=== PATIENT | male | born 1950 | race Caucasian/White ===

== ENCOUNTER 2021-08-16 00:37 | Emergency (ER) | payer MEDICARE, OTHER ==
[~2021-08-16] VITALS: Ht 167.6 cm; Wt 86.2 kg
[2021-08-16] MEDS ORDERED: HYDROCODONE/APAP 10/325MG TABLET PO ONE (01:30)
[2021-08-16] MEDS ORDERED: LORAZEPAM 1 MG TABLET PO ONE (01:30)
--- NOTE | 2021-08-16 01:30 | NUR ---
BIBRA39. HAVENT HAD METHADONE X 2 DAYS, HAVING WITHDRWAL AND SHAKE RAN OUT OF MEDS. PATIENT IS A/O , NO SOB NOTED, RR EVEN AND UNLABORED. PATIENT CONNECETED TO MONITORS.
[2021-08-16] MEDS ORDERED: LORAZEPAM 1 MG TABLET ONE (01:53)
[2021-08-16] MEDS ORDERED: HYDROCODONE/APAP 10/325MG TABLET ONE (01:53)
--- NOTE | 2021-08-16 07:27 | NUR ---
PER PATIENT ROOM MATE NUMBER ZACHARY LEFT MESSAGE X 2 NO ANSWER. CALLED [phone] UNABLE TO CONTACT
[2021-08-16 09:36] VITALS: BP 112/77
--- NOTE | 2021-08-16 09:37 | NUR ---
Patient discharged to home in stable condition. Written and verbal after care instructions given. Patient verbalizes understanding of instruction. Picked up by maribel going back to [facility].
== END 2021-08-16 09:37 | disposition home or self-care (01) ==
LOC: ER 00:43
DX: F11.13 Opioid abuse with withdrawal (principal); Z76.0 Encounter for issue of repeat prescription; E11.9 Type 2 diabetes mellitus without complications; J44.9 Chronic obstructive pulmonary disease, unspecified; G89.29 Other chronic pain
CPT/HCPCS: 82962-TC

== ENCOUNTER 2021-11-05 10:07 | Inpatient (IN) | payer MEDICARE, OTHER ==
[~2021-11-05] VITALS: Ht 182.9 cm; Wt 86.0 kg
--- NOTE | 2021-11-05 10:25 | NUR ---
PT BIBRA[address] FROM A [address] HOUSE C/O GENERALIZED WEAKNESS, FEVER X 1 WEEK NOW, TODAY PT WAS UNABLE TO GET UP. 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 DENIES ANY CHEST PAIN, AFEBRILE. GOWNED AND PLACED ON MONITOR. AWAITING MD SYKES.
--- NOTE | 2021-11-05 10:30 | NUR ---
DR HINOJOSA AT BEDSIDE FOR EVAL.
[2021-11-05] MEDS ORDERED: DILTIAZEM HCL 25 MG IV IV ONE (11:00)
--- NOTE | 2021-11-05 11:05 | NUR ---
IV LINE STARTED BLOOD DRAWN AND SENT TO LAB.
--- NOTE | 2021-11-05 11:15 | NUR ---
CRUSHER AND BINDER OPERATOR AT PT'S BEDSIDE
[2021-11-05 11:21] LABS: HEMATOCRIT 41 % (39-51); LYMPHOCYTES # (AUTO) 0.4 K/uL (0.8-4.8); LYMPHOCYTES % (AUTO) 4.5 % (20.0-44.0); MEAN CORPUSCULAR HGB CONC 34 g/dl (31.0-36.0); MEAN CORPUSCULAR VOLUME 101 fL (80-96); MONOCYTES # (AUTO) 0.5 K/uL (0.1-1.30); MONOCYTES % (AUTO) 5.2 % (2.0-12.0); NEUTROPHILS # (AUTO) 8.5 K/uL (1.8-8.9); NEUTROPHILS % (AUTO) 90.3 % (43.0-81.0); PLATELET COUNT (AUTO) 68 K/uL (150-450); RED BLOOD CELL COUNT(AUTO) 4.09 MIL/uL (4.5-6.0); WHITE BLOOD COUNT (AUTO) 9.5 K/uL (4.3-11.0)
--- NOTE | 2021-11-05 11:30 | NUR ---
MOVE SHEET SUBMITTED
[2021-11-05] MEDS ORDERED: DILTIAZEM HCL 25 MG IV ONE ×2 (11:38→12:11)
[2021-11-05 11:47] LABS: SERUM AMMONIA 4 umol/L (11-32)
[2021-11-05 11:52] LABS: ALANINE AMINOTRANSFERASE 56 U/L (12-78); ALBUMIN 2.3 g/dL (3.4-5.0); ALKALINE PHOSPHATASE 99 U/L (46-116); ASPARTATE AMINOTRANSFERASE 98 U/L (15-37); BILIRUBIN,DIRECT 0.9 mg/dL (0.0-0.2); BILIRUBIN,TOTAL 1.8 mg/dL (0.2-1.0); CALCIUM, SERUM 8.2 mg/dL (8.5-10.1); CARBON DIOXIDE 26 mmol/L (21-32); CHLORIDE 84 mmol/L (98-107); CREATININE 0.7 mg/dL (0.6-1.3); GLUCOSE 254 mg/dL (74-106); POTASSIUM 3.8 mmol/L (3.5-5.1); SODIUM SERUM 125 mmol/L (136-145); TOTAL PROTEIN, SERUM 6.4 g/dL (6.4-8.2); UREA NITROGEN, BLOOD 14 mg/dL (7-18)
[2021-11-05] MEDS ORDERED: METH10TA2 PO (11:55)
--- NOTE | 2021-11-05 11:56 | NUR ---
CALLED FOR ICU BED.
[2021-11-05] MEDS ORDERED: DILTIAZEM HCL 25 MG IV IVP ONE (12:00)
[2021-11-05] MEDS ORDERED: DILTIAZEM HCL IV 125 MG in IV D5W 100 ML IV ONE (12:00)
--- NOTE | 2021-11-05 12:09 | NUR ---
LAB CALLED LACTIC ACID 2.2 MD AWARE.
[2021-11-05 12:22] LABS: BAND % (MANUAL) 10 % (0.0-5.0); LYMPHOCYTES % (MANUAL) 8 % (16-48); MONOCYTES % (MANUAL) 1 % (0-11.0); NEUTROPHILS % (MANUAL) 81 (42-76)
--- NOTE | 2021-11-05 12:28 | NUR ---
PT RETURNED FROM [facility] VIA [facility]
[2021-11-05] MEDS ORDERED: IV NS 0.9% 1,000 ML BAG IV ONE (12:30)
[2021-11-05] MEDS ORDERED: PIPERACILLIN /TAZOBACTAM 3.375 G in IV D5W 50 ML IV ONE (13:00)
--- NOTE | 2021-11-05 14:09 | NUR ---
RAJIV MIDLINE #18G S/L INSERTED BY MIDLINE NURSE DNOG; PATENT AND INTACT. WILL RESUME IV MEDS ORDERED
[2021-11-05] MEDS ORDERED: PIPERACILLIN /TAZOBACTAM 3.375 G VIAL IV ONE (14:14)
[2021-11-05] MEDS ORDERED: DEXAMETHASONE SOD PHOSPHATE 6 MG in IV D5W 50 ML IV SCH (14:30)
[2021-11-05] MEDS ORDERED: APIXABAN 5 MG TABLET PO SCH (14:30)
[2021-11-05] MEDS ORDERED: MORPHINE SULFATE INJ 2 MG/ML DISP.SYRIN IV PRN (14:30)
[2021-11-05] MEDS ORDERED: LABETALOL 20 MG/4 ML VIAL IV PRN (14:30)
[2021-11-05] MEDS ORDERED: MAG HYDROX/AL HYDROX/SIMETH 30 ML UDC PO PRN (14:30)
[2021-11-05] MEDS ORDERED: MAGNESIUM HYDROXIDE 30 ML UDC PO PRN (14:30)
[2021-11-05] MEDS ORDERED: ONDANSETRON HCL/PF 4 MG/2 ML VIAL IVP PRN (14:30)
[2021-11-05] MEDS ORDERED: ACETAMINOPHEN 325 MG TABLET PO PRN (14:30)
--- NOTE | 2021-11-05 14:35 | NUR ---
PT SEEN BY DR. CROFT ORDERS FOR AMIO DRIP IF PT IS STILL TACHY > 140'S IN 4 HOURS. CARDIZEM DRIP INFUSING ORDERED.
--- NOTE | 2021-11-05 14:38 | NUR ---
CARDIZEM 15MG/HR IINFUSING. HR 127. PT IN NO DISTRESS AT THIS TIME . WILL CONTINUE TO MONITOR VS & REASSES.
[2021-11-05] MEDS ORDERED: APIXABAN 5 MG TABLET ONE (14:50)
--- NOTE | 2021-11-05 14:54 | NUR ---
U/S TECH AT BEDSIDE FOR ABDOMINAL ULTRASOUND.
[2021-11-05] MEDS ORDERED: DEXTROSE 50%-WATER 50 ML DISP.SYRIN IV PRN (15:00)
[2021-11-05] MEDS ORDERED: DEXAMETHASONE SOD PHOSPHATE 4 MG/ML VIAL IV SCH (15:00)
[2021-11-05] MEDS ORDERED: DEXAMETHASONE SOD PHOSPHATE 10 MG/ML VIAL ONE (15:12)
[2021-11-05] MEDS ORDERED: AMLODIPINE BESYLATE 5 MG TABLET ONE (15:12)
[2021-11-05] MEDS: AMLODIPINE BESYLATE 5 MG TABLET PO SCH (15:21)
--- NOTE | 2021-11-05 15:32 | NUR ---
URINE COLLECTED AND SENT TO LAB
[2021-11-05] MEDS ORDERED: IV NS 0.9% 1,000 ML IV ONE (16:00)
--- NOTE | 2021-11-05 16:03 | NUR ---
BLOOD COLLECTED AND SENT TO LAB
--- NOTE | 2021-11-05 16:48 | NUR ---
PT SEEN BY DR. GALE
[2021-11-05 17:00] LABS: BILIRUBIN,URINE MODERATE (NEGATIVE); COLOR,URINE DARK YELLOW (YELLOW); LEUKOCYTE ESTERASE ,URINE NEGATIVE (NEGATIVE); NITRITE, URINE NEGATIVE (NEGATIVE); PH,URINE 6.5 (5.0-8.0); PROTEIN,URINE >=300 mg/dl (NEGATIVE); UGLUCOSE 100 MG/DL mg/dL (NEGATIVE); UROBILINOGEN,URINE >=8.0 EU/dL (0.2)
[2021-11-05] MEDS: BLOOD SUGAR DIAGNOSTIC 1 EACH STRIP VI SCH ×2 (17:15→22:20)
--- NOTE | 2021-11-05 17:15 | NUR ---
PT NPO PER ORDERS. POC BS 244; HELD INSULIN
--- NOTE | 2021-11-05 17:31 | NUR ---
CALLED [facility] TO VERIFY METHADONE ORDER AND NEED PT'S CLINIC WHERE METHADON WAS PRESCRIPED. PT NOT A GOOD HISTORIAN, AND NOT ABLE TO TO GET A HOLD OF EMERGENCY CONTACT. PT STATED HE LAST TOOK METHADONE YESTERDAY. PHARMACY AWARE.
[2021-11-05 17:39] LABS: BACTERIA,URINE Rare /HPF (None Seen); CREATININE, URINE 138.6 MG/DL (30.0-125.0); MUCUS,URINE Few /LPF (None Seen); RBC,URINE 51-80 /HPF (0-2); SQUAMOUS EPITHELIAL CELL,UR 0-2 /HPF (None Seen); WBC,URINE 0-2 /HPF (0-3)
[2021-11-05] MEDS ORDERED: INSULIN REGULAR, HUMAN 100 UNIT/ML 10 ML VIAL ONE (17:50)
[2021-11-05] MEDS ORDERED: METOPROLOL TARTRATE 50 MG TABLET ONE (17:50)
[2021-11-05] MEDS: METOPROLOL TARTRATE 50 MG TABLET PO SCH (18:17)
[2021-11-05] MEDS: *INSULIN REGULAR(HUMULIN R)HUM 100 UNIT/ML VIAL SQ PRN ×2 (18:19→22:21)
[2021-11-05] MEDS ORDERED: AMIODARONE 150 MG in IV D5W 100 ML IV ONE (18:30)
--- NOTE | 2021-11-05 19:12 | NUR ---
URINE COLLECTED AND SENT TO LAB
[2021-11-05] MEDS ORDERED: AMIODARONE 150 MG/3 ML VIAL IV ONE (19:13)
[2021-11-05] MEDS ORDERED: AMIODARONE 450 MG in IV D5W 241 ML IV PRN (19:30)
--- NOTE | 2021-11-05 19:41 | NUR ---
PT ON CARDIZEM 15MG/HR; HR IS AFIB 85-99. HELD AMIO 150MG IVP AND AMIO DRIP AT THIS TIME. GUERDA FLORES NOTIFIED
--- NOTE | 2021-11-05 19:44 | NUR ---
ROOM 119-1
--- NOTE | 2021-11-05 20:26 | NUR ---
REPORT GIVEN TO GEE FOR JOYCE
--- NOTE | 2021-11-05 20:40 | NUR ---
RN NOTES RECEIVED CARE OF PATIENT FROM ER, PATIENT A/O X3, ABLE TO VERBALIZE NEEDS. PATIENT ON TELE MONITOR SHOWING AFIB, RVR WITH HR IN THE 140S, PATIENT ON BROUGHT FROM ER ON CARDIZEM DRIP. PATIENT ON O2 THERAPY VIA NC 2L/MIN, O2 SAT 96% AT THIS TIME, NO SOB NOTED, NO SIGNS OF DISTRESS. IV ACCESS ON RAJIV MIDLINE, PATENT AND INFUSING CARDIZEM. ALL ISOLATION PRECAUTION IMPLEMENTED, ALL SAFETY PRECAUTIONS IN PLACE. WILL CONTINUE TO MONITOR PATIENT.
--- NOTE | 2021-11-05 20:49 | NUR ---
PT TRANSFERRED TO [facility] VIA ACLS PROTOCOL. ON CARDIZEM 15MG/HR IV ORDERED. VSS. BEDSIDE REPORT GIVEN AND MEDS GIVEN TO
--- NOTE | 2021-11-05 20:50 | NUR ---
ER NOTIFIED THAT AMIODARONE WAS HELD BY ER MD, CARDIZEM 15MG IV INFUSING AT THIS TIME. PATIENT IS CONTROLLED AFIB ON TELE MONITOR, NO SIGNS OF DISTRESS NOTED, HEART RATE OF 72, WILL CONTINUE TO MONITOR.
[2021-11-05 21:23] VITALS: BP 116/73
[2021-11-05] MEDS: APIXABAN 5 MG TABLET PO SCH (21:55)
[2021-11-06] VITALS: BP 105/72
[2021-11-06 00:31] LABS: ALCOHOL, BLOOD < 3 mg/dL (0-0)
[2021-11-06 04:00] VITALS: BP 116/77
[2021-11-06] MEDS: METOPROLOL TARTRATE 50 MG TABLET PO SCH ×4 (06:00→17:29)
--- NOTE | 2021-11-06 07:25 | NUR ---
RN CLOSING NOTES ENDORSED PT TO AM NURSE IN STABLE CONDITIONS A/O X3-4, ABLE TO VERBALIZE NEEDS. NO SIGNIFICANT NURSING FINDINGS UPON ALL NURSE ASSESSMENTS. VITAL SIGNS WITHIN NORMAL RANGES EXCEPT BP WHICH REMAINED BELOW 100 SYSTOLIC THROUGHOUT THE SHIFT. THERAPY TEACHER MADE AWARE. SCHEDULED BETA BLOCKERS HELD DUE TO LOW SYSTOLIC BP PER MD ORDERS. PATIENT ON TELE MONITOR SHOWING CONTROLLED AFIB. PATIENT ON O2 THERAPY VIA NC 2L/MIN, O2 SAT 95% AT THIS TIME, NO SOB NOTED, NO SIGNS OF DISTRESS. IV ACCESS ON RAJIV MIDLINE, PATENT. ALL ISOLATION PRECAUTION IMPLEMENTED, ALL SAFETY PRECAUTIONS IN PLACE. WILL ENDORSED TO AM NURSE FOR JOYCE.
--- NOTE | 2021-11-06 07:30 | NUR ---
RN NOTE PT FOUND RESTING IN BED. NO DISTRESS NOTED. AFIB NOTED ON TELE. PT A/OX3. PT ON 2LO2 VIA NC. TOLERATING WELL. PT IS NPO. PT HAS BRUISES ON R/L ARM AND WOUND ON L TOE. PT HAS RAJIV MIDLINE FLUSHING WELL. PT BED WHEELS LOCKED. CALL LIGHT WITHIN REACH AND SAFETY MEASURES NOTED. WILL CONTINUE TO MONITOR.
[2021-11-06 07:43] LABS: BASOPHILS % (AUTO) 0.5 % (0.0-2.0); EOSINOPHILS % (AUTO) 0.4 % (0.0-6.0); HEMATOCRIT 40 % (39-51); HEMOGLOBIN 13.2 g/dL (13.5-17.5); LYMPHOCYTES # (AUTO) 1.2 K/uL (0.8-4.8); LYMPHOCYTES % (AUTO) 15.8 % (20.0-44.0); MEAN CORPUSCULAR HGB CONC 33 g/dl (31.0-36.0); MEAN CORPUSCULAR VOLUME 102 fL (80-96); MONOCYTES # (AUTO) 0.7 K/uL (0.1-1.30); MONOCYTES % (AUTO) 9.8 % (2.0-12.0); NEUTROPHILS # (AUTO) 5.4 K/uL (1.8-8.9); NEUTROPHILS % (AUTO) 73.5 % (43.0-81.0); PLATELET COUNT (AUTO) 64 K/uL (150-450); RED BLOOD CELL COUNT(AUTO) 3.89 MIL/uL (4.5-6.0); WHITE BLOOD COUNT (AUTO) 7.3 K/uL (4.3-11.0)
--- NOTE | 2021-11-06 07:43 | NUR ---
WOUND CARE CONSULT: REVIEWED CHART, NURSING DOCUMENTATION AND PHOTOS WHICH INDICATE DISCOLORATION TO ARMS AND TOE WOUNDS, PRESENT ON ADMISSION. DPM CONSULT CALLED TO DR ANDERSON. RECOMMENDATIONS MADE FOR SKIN PROTECTION. DISCUSSED WITH NURSING STAFF. MD IN AGREEMENT WITH PLAN OF CARE.
[2021-11-06 08:00] VITALS: BP 106/74
[2021-11-06] MEDS ORDERED: Z GUARD REMEDY 4 OZ OINT TP PRN (08:00)
[2021-11-06 08:40] LABS: ALBUMIN 1.9 g/dL (3.4-5.0); BILIRUBIN,TOTAL 0.9 mg/dL (0.2-1.0); CALCIUM, SERUM 8.5 mg/dL (8.5-10.1); CREATININE 0.7 mg/dL (0.6-1.3); MAGNESIUM 2.4 mg/dL (1.8-2.4); PHOSPHORUS 2.4 mg/dL (2.5-4.9); POTASSIUM 3.4 mmol/L (3.5-5.1); TOTAL PROTEIN, SERUM 6.5 g/dL (6.4-8.2)
[2021-11-06] MEDS ORDERED: CEFEPIME 1 GM VIAL IM SCH (09:00)
[2021-11-06] MEDS: ALBUMIN 25% 25 GM in PREMIX 1 EA IV SCH ×2 (09:54→20:38)
[2021-11-06] MEDS: VANCOMYCIN HCL 1.25 GM in IV D5W 260 ML IV SCH ×2 (09:54→21:54)
[2021-11-06] MEDS: INSULIN REGULAR, HUMAN 100 UNIT/ML 3 ML VIAL SQ PRN ×2 (09:57→13:00)
[2021-11-06] MEDS: BLOOD SUGAR DIAGNOSTIC 1 EACH STRIP VI SCH ×4 (09:58→21:00)
[2021-11-06] MEDS: AMLODIPINE BESYLATE 5 MG TABLET PO SCH (10:01)
--- NOTE | 2021-11-06 10:18 | NUR ---
RN NOTE PATIENT SEEN BY RONNELL VEGA TO GIVE PLT OF 64 XARELTO ORDERED.
[2021-11-06] MEDS: APIXABAN 5 MG TABLET PO SCH ×2 (10:28→20:49)
[2021-11-06] MEDS: METHADONE HCL 10 MG TABLET PO SCH (11:01)
--- NOTE | 2021-11-06 11:30 | NUR ---
RN NOTE PATIENT SEEN BY DR. CROFT UPDATED REGARDING PATIENT CURRENT CONDITION.
[2021-11-06] MEDS: POTASSIUM CL. PREMIX PERIPHER. 50 ML IV SCH ×2 (11:49→12:57)
[2021-11-06 12:00] VITALS: BP 114/87
--- NOTE | 2021-11-06 12:00 | NUR ---
RN NOTE AMIODARONE DRIP ON HOLD BY PATIENT ON ELIQUIS AND HR IS 95 AT THIS TIME.
[2021-11-06 12:09] LABS: THYROID STIMULATING HORMONE 1.051 uIU/mL (0.358-3.74)
[2021-11-06] MEDS: CEFEPIME 2 GM in IV D5W 100 ML IV SCH ×2 (12:34→17:33)
[2021-11-06] MEDS ORDERED: Sodium Phosphate 15 MMOL in IV NS 0.9% 250 ML IV SCH (13:00)
[2021-11-06 16:00] VITALS: BP 116/71
[2021-11-06] MEDS: *INSULIN REGULAR(HUMULIN R)HUM 100 UNIT/ML VIAL SQ PRN ×2 (17:28→21:01)
--- NOTE | 2021-11-06 18:40 | NUR ---
RN NOTE PT RESTING IN BED. NO DISTRESS NOTED. AFIB NOTED ON TELE. PT A/OX3. PT ON 2LO2 VIA NC. TOLERATING WELL. PT IS PUREE W/NTL DIET. PT HAS BRUISES ON R/L ARM AND WOUND ON L TOE. WOUND TREATMENT DONE ORDERED. PT HAS RAJIV MIDLINE FLUSHING WELL. K REPLACED ORDERED. PT BED WHEELS LOCKED. CALL LIGHT WITHIN REACH AND SAFETY MEASURES NOTED. WILL ENDORSE TO ACQUISITION COST ESTIMATOR.
--- NOTE | 2021-11-06 19:39 | NUR ---
RN NOTE RECEIVED PATIENT IN BED, AWAKE, ALERT, AND VERBALLY RESPONSIVE. AOX2. ABLE TO MAKE NEEDS KNOWN. BREATHING EVEN AND UNLABORED. NO SOB NOTED AT THIS TIME. PATIENT PLACED BACK ON 2L/MIN NASAL CANNULA. PATIENT STATES NOT NEEDING OXYGEN BUT AGREED TO BE ON O2 AT THIS TIME. DENIES CHEST PAIN. ON TELE MONITORING. SINUS RHYTHM AT THIS TIME. SKIN WARM AND DRY. NO BLEEDING NOTED AT THIS TIME. NOTED WITH RIGHT UPPER ARM MIDLINE. PATENT. NO INFILTRATION. BED LOW, IN LOCKED POSITION. CALL LIGHT WITHIN REACH. Addendum: 11/06/21 at 2019 by YULIYA ELY RN CORRECTION - PATIENT A.FIB AT 94 BPM.
[2021-11-06 20:00] VITALS: BP 112/87
[2021-11-06 22:27] LABS: BAND % (MANUAL) 1 % (0.0-5.0); EOSINOPHILS % (MANUAL) 1 % (0-4); LYMPHOCYTES % (MANUAL) 11 % (16-48); MONOCYTES % (MANUAL) 8 % (0-11.0); NEUTROPHILS % (MANUAL) 79 (42-76)
[2021-11-07] VITALS: BP 120/90
[2021-11-07] MEDS: METOPROLOL TARTRATE 50 MG TABLET PO SCH ×4 (01:01→17:28)
[2021-11-07] MEDS: CEFEPIME 2 GM in IV D5W 100 ML IV SCH ×3 (01:02→17:28)
--- NOTE | 2021-11-07 02:31 | NUR ---
CHANGE OF CARE: RECEIVED REPORT. NO CHANGE IN CONDITION. PATIENT STABLE AT THIS TIME.
--- NOTE | 2021-11-07 02:32 | NUR ---
ENDORSEMENT TO RNCHRISTOPHER, ROMAIN JOYCE
[2021-11-07 04:00] VITALS: BP 142/87
[2021-11-07] MEDS: BLOOD SUGAR DIAGNOSTIC 1 EACH STRIP VI SCH ×4 (06:27→22:07)
[2021-11-07] MEDS: *INSULIN REGULAR(HUMULIN R)HUM 100 UNIT/ML VIAL SQ PRN ×4 (06:29→22:23)
--- NOTE | 2021-11-07 06:59 | NUR ---
RN CLOSING NOTE: PATIENT IN BED AWAKE. ALERT AND ORIENTED X2-3. INTERMITTENT FORGETFULNESS/CONFUSION NOTED THROUGHOUT THE EVENING. PATIENT NON-COMPLIANT WITH MAINTAINING NC @ 2LPM PLACEMENT, BUT IN NAD AND VSS AT THIS TIME. CONTINUES WITH CONTROLLED AFIB TO TELE READING. RAJIV MIDLINE, SL. FLUSHED AND PATENT. NO S/SX OF ERYTHEMA/INFILTRATION TO OR SURROUNDING IV CATH INSERTION SITE. DRESSING CDI. BED IN LOW, LOCKED POSITION. SIDE RAILS UP X2. PATIENT DEMONSTRATES ABILITY TO USE CALL LIGHT AND VERBALIZE NEEDS EFFECTIVELY. CALL LIGHT AND FREQUENTLY USED ITEMS WITHIN REACH.
--- NOTE | 2021-11-07 07:50 | NUR ---
RN OPENING NOTES PATIENT IS AWAKE IN BED RESTING, A/O X2-3. NO S/S OF PAIN NOTED AT THIS TIME. ON 2L OXYGEN VIA NC, NO DISTRESS OR SHORTNESS OF BREATH NOTED. IV ACCESS RAJIV MIDLINE, INTACT AND PATENT, FLUSHING WELL. PATIENT HAVE EXTERNAL EXPANDED DUTY DENTAL ASSISTANT WITH CURRENT READING OF A-FIB CONTROLLED, NO CARDIAC DISTRESS NOTED. FALL AND SAFETY MEASURES IN PLACE, BED ALARM ON, BED IN LOW AND LOCK POSITION, CALL LIGHT AND TABLE WITHIN EASY REACH, SIDE RAIL UP X2. WILL CONTINUE TO MONITOR.
[2021-11-07 07:57] LABS: BASOPHILS # (AUTO) 0.1 K/uL (0.0-0.2); BASOPHILS % (AUTO) 0.8 % (0.0-2.0); EOSINOPHILS % (AUTO) 0.5 % (0.0-6.0); HEMATOCRIT 37 % (39-51); HEMOGLOBIN 12.5 g/dL (13.5-17.5); LYMPHOCYTES % (AUTO) 20.5 % (20.0-44.0); MEAN CORPUSCULAR HGB CONC 34 g/dl (31.0-36.0); MEAN CORPUSCULAR VOLUME 101 fL (80-96); MONOCYTES # (AUTO) 0.7 K/uL (0.1-1.30); MONOCYTES % (AUTO) 6.9 % (2.0-12.0); NEUTROPHILS # (AUTO) 6.8 K/uL (1.8-8.9); NEUTROPHILS % (AUTO) 71.3 % (43.0-81.0); PLATELET COUNT (AUTO) 107 K/uL (150-450); WHITE BLOOD COUNT (AUTO) 9.6 K/uL (4.3-11.0)
[2021-11-07 08:00] VITALS: BP 145/116
[2021-11-07 08:20] LABS: CALCIUM, SERUM 8.6 mg/dL (8.5-10.1); CREATININE 0.7 mg/dL (0.6-1.3); POTASSIUM 3.6 mmol/L (3.5-5.1)
[2021-11-07 08:26] LABS: ALBUMIN 2.5 g/dL (3.4-5.0); BILIRUBIN,TOTAL 0.9 mg/dL (0.2-1.0); TOTAL PROTEIN, SERUM 6.7 g/dL (6.4-8.2)
[2021-11-07] MEDS: AMLODIPINE BESYLATE 5 MG TABLET PO SCH (09:14)
[2021-11-07] MEDS: METHADONE HCL 10 MG TABLET PO SCH (09:15)
[2021-11-07] MEDS: APIXABAN 5 MG TABLET PO SCH ×2 (09:17→22:07)
[2021-11-07] MEDS: DEXAMETHASONE SOD PHOSPHATE 10 MG/ML VIAL IV SCH (09:17)
[2021-11-07 10:31] LABS: CREATININE 0.8 mg/dL (0.6-1.3); POTASSIUM 3.8 mmol/L (3.5-5.1)
[2021-11-07 10:47] LABS: CALCIUM, SERUM 9.3 mg/dL (8.5-10.1)
[2021-11-07] MEDS: VANCOMYCIN HCL 1.25 GM in IV D5W 260 ML IV SCH ×2 (11:15→22:00)
[2021-11-07 12:00] VITALS: BP 180/76
[2021-11-07 16:00] VITALS: BP 146/76
--- NOTE | 2021-11-07 19:01 | NUR ---
RN NOTES PATIENT'S FRIEND NAMED AVELINA ALLEN CALLED AND ASKED TO PLEASE BE CALL WHEN PATIENT GET A DISCHARGE ORDER. HE WILL LIKE TO GENERAL EDUCATION INSTRUCTOR PATIENT WHEN HE GET DISCHARGE. HIS PHONE NUMBER IS [phone]. WILL ENDORSE TO NEXT SHIFT.
--- NOTE | 2021-11-07 19:04 | NUR ---
RN CLOSING NOTES PATIENT IS AWAKE IN BED RESTING, A/O X2-3. NO S/S OF PAIN NOTED AT THIS TIME. ON 2L OXYGEN VIA NC, NO DISTRESS OR SHORTNESS OF BREATH NOTED. IV ACCESS RAJIV MIDLINE, INTACT AND PATENT, FLUSHING WELL. PATIENT HAVE EXTERNAL MEAT SLICER WITH CURRENT READING OF A-FIB CONTROLLED, NO CARDIAC DISTRESS NOTED. SCHEDULE MEDS ADMINISTERED. FALL AND SAFETY MEASURES IN PLACE, BED ALARM ON, BED IN LOW AND LOCK POSITION, CALL LIGHT AND TABLE WITHIN EASY REACH, SIDE RAIL UP X2. WILL ENDORSE TO NEXT SHIFT.
--- NOTE | 2021-11-07 19:30 | NUR ---
RN OPENING NOTE PATIENT IN BED EYES CLOSED SLEEPING, EASILY AWAKENED. PATIENT IS A/O X 2 AT THIS TIME, ABLE TO MAKE NEEDS KNOWN. PATIENT IS ON 2LPM, TOLERATING WELL. PATIENT IS ON TELE MONITOR, TELE MONITOR READS AFIB CONTROLLED. PATIENT HAS A RAJIV MIDLINE, PATENT AND INTACT. NOT IN ANY PAIN AT THIS TIME. SAFETY MEASURES IN PLACE: BED LOCKED AND IN LOWEST POSITION, CALL LIGHT WITHIN REACH, SIDE RAILS UP. WILL MONITOR PATIENT CLOSELY. ISOLATION PRECAUTIONS IN PLACE.
[2021-11-07 20:00] VITALS: BP 147/95
--- NOTE | 2021-11-07 22:00 | NUR ---
BS 222 MG/DL, 4 UNITS COVERAGE GIVEN. WILL MONITOR PATIENT FOR HYPOGLYCEMIA
[2021-11-08] VITALS: BP 150/98
[2021-11-08] MEDS: METOPROLOL TARTRATE 50 MG TABLET PO SCH ×4 (01:04→17:03)
[2021-11-08] MEDS: CEFEPIME 2 GM in IV D5W 100 ML IV SCH ×2 (02:16→09:19)
[2021-11-08 04:00] VITALS: BP 113/87
[2021-11-08 06:36] LABS: BASOPHILS % (AUTO) 0.2 % (0.0-2.0); EOSINOPHILS % (AUTO) 0.2 % (0.0-6.0); HEMATOCRIT 38 % (39-51); HEMOGLOBIN 12.6 g/dL (13.5-17.5); LYMPHOCYTES # (AUTO) 1.7 K/uL (0.8-4.8); LYMPHOCYTES % (AUTO) 29.1 % (20.0-44.0); MEAN CORPUSCULAR HGB CONC 33 g/dl (31.0-36.0); MEAN CORPUSCULAR VOLUME 102 fL (80-96); MONOCYTES # (AUTO) 0.6 K/uL (0.1-1.30); MONOCYTES % (AUTO) 10.1 % (2.0-12.0); NEUTROPHILS # (AUTO) 3.6 K/uL (1.8-8.9); NEUTROPHILS % (AUTO) 60.4 % (43.0-81.0); PLATELET COUNT (AUTO) 109 K/uL (150-450); RED BLOOD CELL COUNT(AUTO) 3.75 MIL/uL (4.5-6.0)
--- NOTE | 2021-11-08 07:04 | NUR ---
RN CLOSING NOTE PATIENT IN BED AWAKE. PATIENT IS A/O X 2 AT THIS TIME, ABLE TO MAKE NEEDS KNOWN. PATIENT IS ON 2LPM, TOLERATING WELL. PATIENT IS ON TELE MONITOR, TELE MONITOR READS AFIB CONTROLLED 62 BPM. PATIENT HAS A RAJIV MIDLINE, PATENT AND INTACT. NOT IN ANY PAIN AT THIS TIME. SAFETY MEASURES IN PLACE: BED LOCKED AND IN LOWEST POSITION, CALL LIGHT WITHIN REACH, SIDE RAILS UP. ISOLATION PRECAUTIONS IN PLACE. ALL NEEDS MET AND ATTENDED, ALL ORDERS CARRIED OUT. WILL ENDORSE TO DAY SHIFT NURSE FOR JOYCE.
--- NOTE | 2021-11-08 07:29 | NUR ---
RN OPENING NOTES; PT IN BED SLEEPING. A/OX2. NO SOB NOTED, PT ON 02 VIA NC @ 2LPM SATTING AT 97%. PT ON RAJIV ML NOTED, FLUSHED, PATENT WITH NO SIGN OF INFILTRATION. ALL SAFETY MEASURES RENDERED, BED LOCKED IN LOWEST POS. SIDE RAILS X3 WITH CALL LIGHT WITHIN REACH. WILL CONTINUE TO MONITOR.
[2021-11-08 07:31] LABS: CALCIUM, SERUM 9.5 mg/dL (8.5-10.1); CREATININE 0.8 mg/dL (0.6-1.3); MAGNESIUM 2.4 mg/dL (1.8-2.4); PHOSPHORUS 3.1 mg/dL (2.5-4.9); POTASSIUM 2.9 mmol/L (3.5-5.1)
[2021-11-08] MEDS: BLOOD SUGAR DIAGNOSTIC 1 EACH STRIP VI SCH ×4 (07:42→21:47)
[2021-11-08] MEDS: *INSULIN REGULAR(HUMULIN R)HUM 100 UNIT/ML VIAL SQ PRN ×4 (07:51→21:50)
[2021-11-08 08:00] VITALS: BP 144/96
[2021-11-08] MEDS: VANCOMYCIN HCL 1.25 GM in IV D5W 260 ML IV SCH (08:00)
[2021-11-08] MEDS: METHADONE HCL 10 MG TABLET PO SCH (08:02)
[2021-11-08] MEDS: DEXAMETHASONE SOD PHOSPHATE 10 MG/ML VIAL IV SCH (08:02)
[2021-11-08] MEDS: APIXABAN 5 MG TABLET PO SCH ×2 (08:03→20:31)
[2021-11-08] MEDS: POTASSIUM CHLORIDE 20 MEQ TAB.PRT.SR PO SCH ×2 (10:01→16:34)
[2021-11-08 10:36] LABS: THYROID STIMULATING HORMONE 2.257 uIU/mL (0.358-3.74)
[2021-11-08] MEDS: CEFTRIAXONE 2 G in IV D5W 100 ML IV SCH (10:58)
[2021-11-08 12:00] VITALS: BP 132/93
[2021-11-08 16:00] VITALS: BP 138/73
--- NOTE | 2021-11-08 18:47 | NUR ---
RN CLOSING NOTES; PT IN BED IN SIDE LYING POS. A/OX2, PT ABLE TO MAKE NEEDS KNOWN. NO SOB OR DISTRESS NOTED. PT HAS NO C/O PAIN AT THIS TIME. ALL MEDICATIONS GIVEN AND TOLERATED WELL. PT KEPT CLEAN, DRY AND COMFORTABLE. ALL SAFETY MEASURES RENDERED, BED LOCKED IN LOWEST POS. SIDERAILSX3, WITH CALL LIGHT WITHIN REACH. NO SIGNIFICANT CHANGES IN PT HEALTH STATUS DURING SHIFT. WILL ENDORSE TO SOIL TECHNOLOGIST RN.
--- NOTE | 2021-11-08 19:45 | NUR ---
RN NOTE PT RECEIVED IN BED. PT IS ON 3L OF O2 VIA NC SHOWING NO S/S OF RESP DISTRESS. BREATHING EVEN AND UNLABORED. ON METER SETTER SHOWING CONTROLLED A-FIB. ON PUREED DIET. IV ACCESS NOTED ON RIGHT UPPER ARM MIDLINE. LINE FLUSHED, PATENT, AND INTACT WITH NO SIGNS OF INFILTRATION. ALL SAFETY MEASURES IMPLEMENTED. CALL LIGHT WITHIN REACH. BED ALARM ON. BED LOCKED AND IN LOWEST POSITION. SIDE RAILS UP. WILL CONTINUE TO MONITOR AND ASSESS FOR ANY CHANGES DURING SHIFT.
[2021-11-08 20:00] VITALS: BP 140/91
[2021-11-09] VITALS: BP 133/92
[2021-11-09] MEDS: METOPROLOL TARTRATE 50 MG TABLET PO SCH ×4 (01:01→17:52)
[2021-11-09 04:00] VITALS: BP 155/92
--- NOTE | 2021-11-09 06:48 | NUR ---
RN NOTE NO CHANGES IN PT CONDITION DURING SHIFT. PT IS ON 3L OF O2 VIA NC SHOWING NO S/S OF RESP DISTRESS. BREATHING EVEN AND UNLABORED. ON LEDGE MAN SHOWING CONTROLLED A-FIB. ON PUREED DIET. IV ACCESS NOTED ON RIGHT UPPER ARM MIDLINE. LINE FLUSHED, PATENT, AND INTACT WITH NO SIGNS OF INFILTRATION. ALL DUE MEDS GIVEN ORDERED. PT KEPT CLEAN AND COMFORTABLE. ALL SAFETY MEASURES IMPLEMENTED. CALL LIGHT WITHIN REACH. BED ALARM ON. BED LOCKED AND IN LOWEST POSITION. SIDE RAILS UP. WILL ENDORSE TO MORNING SHIFT RN FOR JOYCE.
[2021-11-09] MEDS: BLOOD SUGAR DIAGNOSTIC 1 EACH STRIP VI SCH ×4 (07:30→22:39)
[2021-11-09 08:00] VITALS: BP 149/99
[2021-11-09 08:32] LABS: BASOPHILS % (AUTO) 0.5 % (0.0-2.0); EOSINOPHILS % (AUTO) 0.6 % (0.0-6.0); HEMATOCRIT 38 % (39-51); HEMOGLOBIN 12.5 g/dL (13.5-17.5); LYMPHOCYTES # (AUTO) 2.4 K/uL (0.8-4.8); LYMPHOCYTES % (AUTO) 30.3 % (20.0-44.0); MEAN CORPUSCULAR HGB CONC 33 g/dl (31.0-36.0); MEAN CORPUSCULAR VOLUME 102 fL (80-96); MONOCYTES # (AUTO) 0.8 K/uL (0.1-1.30); MONOCYTES % (AUTO) 9.6 % (2.0-12.0); NEUTROPHILS # (AUTO) 4.6 K/uL (1.8-8.9); PLATELET COUNT (AUTO) 124 K/uL (150-450); RED BLOOD CELL COUNT(AUTO) 3.71 MIL/uL (4.5-6.0); WHITE BLOOD COUNT (AUTO) 7.9 K/uL (4.3-11.0)
[2021-11-09] MEDS: POTASSIUM CHLORIDE 20 MEQ TAB.PRT.SR PO SCH ×4 (09:01→17:51)
[2021-11-09] MEDS: DEXAMETHASONE SOD PHOSPHATE 10 MG/ML VIAL IV SCH (09:02)
[2021-11-09] MEDS: APIXABAN 5 MG TABLET PO SCH ×2 (09:03→22:00)
[2021-11-09] MEDS: METHADONE HCL 10 MG TABLET PO SCH (09:09)
[2021-11-09 09:37] LABS: CALCIUM, SERUM 7.4 mg/dL (8.5-10.1); CREATININE 0.7 mg/dL (0.6-1.3); MAGNESIUM 1.8 mg/dL (1.8-2.4); PHOSPHORUS 2.6 mg/dL (2.5-4.9); POTASSIUM 3.3 mmol/L (3.5-5.1)
[2021-11-09] MEDS: *INSULIN REGULAR(HUMULIN R)HUM 100 UNIT/ML VIAL SQ PRN ×2 (10:22→22:42)
[2021-11-09] MEDS: CEFTRIAXONE 2 G in IV D5W 100 ML IV SCH (10:40)
[2021-11-09 12:00] VITALS: BP 142/88
[2021-11-09] MEDS: INSULIN REGULAR, HUMAN 100 UNIT/ML 3 ML VIAL SQ PRN (12:41)
[2021-11-09 16:00] VITALS: BP 138/90
[2021-11-09] MEDS ORDERED: IV NS 0.9% 1,000 ML IV ONE (16:30)
--- NOTE | 2021-11-09 19:41 | NUR ---
RN OPENING NOTES; RECEIVED PT IN BED AWAKE, ALERT, ORIENTED X2 AND VERBALLY RESPONSIVE. NO SOB NOTED, PT ON 02 VIA NC @ 2LPM AND TOLERATED WELL. IV ACCESS ON RAJIV ML INTACT AND PATENT. NO SIGN OF INFILTRATION. NO C/O PAIN OR DISCOMFORT. NO ACUTE DISTRESS. ALL SAFETY MEASURES IN PLACE, BED LOCKED IN LOWEST POSITION. SIDE RAILS X3. PLACE CALL LIGHT WITHIN REACH. WILL CONTINUE TO MONITOR.
[2021-11-09 20:00] VITALS: BP 156/107
[2021-11-10] VITALS: BP 161/115
[2021-11-10] MEDS: METOPROLOL TARTRATE 50 MG TABLET PO SCH ×4 (01:11→17:54)
[2021-11-10 04:00] VITALS: BP 131/100
--- NOTE | 2021-11-10 06:50 | NUR ---
RN CLOSING NOTES; PT IN BED AWAKE, ALERT, ORIENTED X2 AND VERBALLY RESPONSIVE. NO SOB, BREATHING EVEN AND UNLABORED. ON 02 VIA NC @ 2LPM, O2 SAT 97% AND TOLERATED WELL. IV ACCESS ON RAJIV ML INTACT AND PATENT. NO SIGN OF INFILTRATION. NO C/O PAIN OR DISCOMFORT. NO ACUTE DISTRESS. ALL DUE MEDS GIVEN ORDERED AND PT TOLERATED WELL. NO S/S OF HYPER/HYPOGLYCEMIA. ALL SAFETY MEASURES IN PLACE, BED LOCKED IN LOWEST POSITION. SIDE RAILS X3. PLACE CALL LIGHT WITHIN REACH. WILL ENDORSE TO MORNING SHIFT NURSE.
[2021-11-10 08:00] VITALS: BP 131/100
[2021-11-10] MEDS: BLOOD SUGAR DIAGNOSTIC 1 EACH STRIP VI SCH ×4 (08:22→22:29)
[2021-11-10] MEDS: DEXAMETHASONE SOD PHOSPHATE 10 MG/ML VIAL IV SCH (09:15)
[2021-11-10] MEDS: METHADONE HCL 10 MG TABLET PO SCH (09:15)
[2021-11-10] MEDS: APIXABAN 5 MG TABLET PO SCH ×2 (09:18→20:56)
[2021-11-10] MEDS: POTASSIUM CHLORIDE 20 MEQ TAB.PRT.SR PO SCH (09:18)
[2021-11-10] MEDS: *INSULIN REGULAR(HUMULIN R)HUM 100 UNIT/ML VIAL SQ PRN ×3 (10:47→17:57)
[2021-11-10] MEDS: CEFTRIAXONE 2 G in IV D5W 100 ML IV SCH (11:52)
[2021-11-10 12:00] VITALS: BP 163/94
--- NOTE | 2021-11-10 14:31 | NUR ---
STRIP CATCHER OPENING NOTES; RECEIVED PT IN BED AWAKE, ALERT, ORIENTED X2 AND VERBALLY RESPONSIVE. NO SOB NOTED, PT ON 2 VIA NC @ 2LPM AND TOLERATED WELL. IV ACCESS ON RAJIV ML INTACT AND PATENT. NO SIGN OF INFILTRATION. NO C/O PAIN OR DISCOMFORT. NO ACUTE DISTRESS. ALL SAFETY MEASURES IN PLACE, BED LOCKED IN LOWEST POSITION. SIDE RAILS X3. PLACE CALL LIGHT WITHIN REACH. WILL CONTINUE TO MONITOR.
[2021-11-10 19:41] VITALS: BP 166/90
[2021-11-10 20:00] VITALS: BP 158/95
--- NOTE | 2021-11-10 20:00 | NUR ---
RN OPENING NOTE RECEIVED PATIENT IN BED. A/OX1, TO SELF. ON OXYGEN 2L/MIN VIA NASAL CANNULA. REMOVES O2 FEELS THERE IS NO NEED FOR IT. INFORMED HIM ON THE IMPORTANCE. NO C/O PAIN NOTED. IV ACCESS IN RAJIV MIDLINE PATENT AND SALINE LOCKED. TELE MONITOR READS CONTROLLED AFIB HR 80. BED REMAINS LOW AND LOCKED, HOB ELEVATED IN SEMI FOWLERS, SIDE RIALS UP X2, CALL LIGHT WITHIN REACH. ALARMS ON AND SAFETY PRECAUTIONS IN PLACE.
--- NOTE | 2021-11-10 21:15 | NUR ---
2115 CRITICAL BLOOD CULTURE RESULT POSITIVE FOR GRAM POSITIVE COCCI REPORTED TO DR. GALVAN WITH NO ORDER MADE.
[2021-11-11] VITALS: BP 141/96
[2021-11-11] MEDS: METOPROLOL TARTRATE 50 MG TABLET PO SCH ×4 (01:26→18:06)
[2021-11-11 04:00] VITALS: BP 154/93
--- NOTE | 2021-11-11 07:02 | NUR ---
RN CLOSING NOTE RESTING IN BED. A/OX1-2, ABLE TO ANSWER QUESTIONS. REMAINS ON OXYGEN 2L/MIN VIA NASAL CANNULA. NO RESP DISTRESS. NO PAIN. RAJIV MIDLINE MAINTAINED. TELE MONITOR IS CONTROLLED AFIB. BED REMAINS LOW AND LOCKED, HOB ELEVATED IN SEMI FOWLERS, SIDE RIALS UP X2, CALL LIGHT WITHIN REACH. ALARMS ON AND SAFETY PRECAUTIONS IN PLACE.WILL ENDORSE TO ONCOMING SHIFT.
--- NOTE | 2021-11-11 07:40 | NUR ---
RN OPENING NOTE RECEIVED PATIENT IN BED. A/OX1, TO SELF. ON OXYGEN 2L/MIN VIA NASAL CANNULA. REMOVES O2 FEELS THERE IS NO NEED FOR IT. INFORMED PT OF IMPORTANCE. NO C/O PAIN NOTED. IV ACCESS IN RAJIV MIDLINE PATENT AND SALINE LOCKED. TELE MONITOR READS CONTROLLED AFIB HR 80. BED REMAINS LOW AND LOCKED, HOB ELEVATED IN SEMI FOWLERS, SIDE RIALS UP X2, CALL LIGHT WITHIN REACH. ALARMS ON AND SAFETY PRECAUTIONS IN PLACE. WILL CONTINUE TO MONITOR.
[2021-11-11 08:00] VITALS: BP 158/96
[2021-11-11] MEDS: BLOOD SUGAR DIAGNOSTIC 1 EACH STRIP VI SCH ×4 (08:01→22:00)
[2021-11-11 09:26] LABS: BASOPHILS % (AUTO) 0.3 % (0.0-2.0); EOSINOPHILS % (AUTO) 0.7 % (0.0-6.0); HEMATOCRIT 44 % (39-51); HEMOGLOBIN 14.6 g/dL (13.5-17.5); LYMPHOCYTES # (AUTO) 1.8 K/uL (0.8-4.8); LYMPHOCYTES % (AUTO) 15.4 % (20.0-44.0); MEAN CORPUSCULAR HGB CONC 33 g/dl (31.0-36.0); MEAN CORPUSCULAR VOLUME 101 fL (80-96); MONOCYTES # (AUTO) 0.6 K/uL (0.1-1.30); MONOCYTES % (AUTO) 5.2 % (2.0-12.0); NEUTROPHILS # (AUTO) 9.2 K/uL (1.8-8.9); NEUTROPHILS % (AUTO) 78.4 % (43.0-81.0); PLATELET COUNT (AUTO) 164 K/uL (150-450); RED BLOOD CELL COUNT(AUTO) 4.39 MIL/uL (4.5-6.0); WHITE BLOOD COUNT (AUTO) 11.8 K/uL (4.3-11.0)
[2021-11-11] MEDS: DEXAMETHASONE SOD PHOSPHATE 10 MG/ML VIAL IV SCH (09:39)
[2021-11-11] MEDS: METHADONE HCL 10 MG TABLET PO SCH (09:40)
[2021-11-11] MEDS: APIXABAN 5 MG TABLET PO SCH ×2 (09:44→22:42)
[2021-11-11 09:59] LABS: ALBUMIN 2.6 g/dL (3.4-5.0); BILIRUBIN,TOTAL 1.1 mg/dL (0.2-1.0); CALCIUM, SERUM 8.9 mg/dL (8.5-10.1); CREATININE 0.8 mg/dL (0.6-1.3); MAGNESIUM 1.9 mg/dL (1.8-2.4); PHOSPHORUS 3.2 mg/dL (2.5-4.9); POTASSIUM 4.5 mmol/L (3.5-5.1); TOTAL PROTEIN, SERUM 7.4 g/dL (6.4-8.2)
[2021-11-11] MEDS: CEFTRIAXONE 2 G in IV D5W 100 ML IV SCH (10:49)
[2021-11-11] MEDS: PROSOURCE / PROSTAT (PYXIS) 30 ML UDC PO SCH (11:15)
[2021-11-11 12:00] VITALS: BP 158/96
--- NOTE | 2021-11-11 13:52 | NUR ---
RN NOTES PT SIGNED ALL CONSENTS FOR PARTIAL AMPUTATION OF LEFT GREAT TOE.
[2021-11-11 16:00] VITALS: BP 144/100
--- NOTE | 2021-11-11 19:46 | NUR ---
RN CLOSING NOTE RESTING IN BED. A/OX1-2, ABLE TO ANSWER QUESTIONS. REMAINS ON OXYGEN 2L/MIN VIA NASAL CANNULA. NO RESP DISTRESS. NO PAIN. RAJIV MIDLINE MAINTAINED. TELE MONITOR IS CONTROLLED AFIB. BED REMAINS LOW AND LOCKED, HOB ELEVATED IN SEMI FOWLERS, SIDE RIALS UP X2, CALL LIGHT WITHIN REACH. ALARMS ON AND SAFETY PRECAUTIONS IN PLACE. ALL TREATMENTS TOLERATED WELL AND CONSENTS SIGNED. WILL ENDORSE TO ONCOMING SHIFT.
[2021-11-11 20:00] VITALS: BP 99/59
[2021-11-11] MEDS: *INSULIN REGULAR(HUMULIN R)HUM 100 UNIT/ML VIAL SQ PRN (23:00)
[2021-11-12 04:00] VITALS: BP 112/65
[2021-11-12] MEDS: METOPROLOL TARTRATE 50 MG TABLET PO SCH ×4 (06:00→17:22)
--- NOTE | 2021-11-12 07:12 | NUR ---
RN NOTE WILL ENDORSE CARE OF PATIENT WHILE PATIENT IN BED, A/OX1-2, ABLE TO ANSWER QUESTIONS AND EXPRESS NEEDS. ON OXYGEN 2L/MIN VIA NASAL CANNULA. NO RESP DISTRESS, O2 SAT 97%. RAJIV MIDLINE MAINTAINED. TELE MONITOR IS CONTROLLED AFIB. ALL SAFETY MEASURES FOLLOWED, BED REMAINS LOW AND LOCKED, HOB ELEVATED IN SEMI FOWLERS, SIDE RIALS UP X2, CALL LIGHT WITHIN REACH. ALARMS ON AND SAFETY PRECAUTIONS IN PLACE. WILL ENDORSE TO AM NURSE FOR JOYCE.
--- NOTE | 2021-11-12 07:55 | NUR ---
MS RN OPENING NOTE Patient in bed, awake. A/O x 2-3. On O2 at 2 LPM, breathing evenly and unlabored. No SOB or s/s of distress noted. IV access on RAJIV midline SL, intact and patent. Safety precautions in place: bed in low, locked position; siderails up x 2; call light within reach. Will continue to monitor.
[2021-11-12] MEDS: BLOOD SUGAR DIAGNOSTIC 1 EACH STRIP VI SCH ×4 (08:15→22:10)
[2021-11-12] MEDS: METHADONE HCL 10 MG TABLET PO SCH ×2 (09:00→12:13)
[2021-11-12] MEDS: PROSOURCE / PROSTAT (PYXIS) 30 ML UDC PO SCH (09:00)
[2021-11-12] MEDS: APIXABAN 5 MG TABLET PO SCH ×2 (09:00→21:53)
[2021-11-12 09:11] LABS: BASOPHILS % (AUTO) 0.2 % (0.0-2.0); EOSINOPHILS % (AUTO) 0.5 % (0.0-6.0); HEMATOCRIT 45 % (39-51); HEMOGLOBIN 14.8 g/dL (13.5-17.5); LYMPHOCYTES # (AUTO) 1.5 K/uL (0.8-4.8); LYMPHOCYTES % (AUTO) 13.8 % (20.0-44.0); MEAN CORPUSCULAR HGB CONC 33 g/dl (31.0-36.0); MEAN CORPUSCULAR VOLUME 101 fL (80-96); MONOCYTES # (AUTO) 0.5 K/uL (0.1-1.30); MONOCYTES % (AUTO) 4.9 % (2.0-12.0); NEUTROPHILS # (AUTO) 8.7 K/uL (1.8-8.9); NEUTROPHILS % (AUTO) 80.6 % (43.0-81.0); PLATELET COUNT (AUTO) 154 K/uL (150-450); RED BLOOD CELL COUNT(AUTO) 4.42 MIL/uL (4.5-6.0); WHITE BLOOD COUNT (AUTO) 10.8 K/uL (4.3-11.0)
[2021-11-12 09:44] LABS: CALCIUM, SERUM 8.3 mg/dL (8.5-10.1); CREATININE 0.9 mg/dL (0.6-1.3); MAGNESIUM 1.8 mg/dL (1.8-2.4); PHOSPHORUS 3.2 mg/dL (2.5-4.9); POTASSIUM 4.2 mmol/L (3.5-5.1)
[2021-11-12] MEDS: DEXAMETHASONE SOD PHOSPHATE 10 MG/ML VIAL IV SCH (10:10)
[2021-11-12] MEDS: CEFTRIAXONE 2 G in IV D5W 100 ML IV SCH (11:18)
[2021-11-12 12:00] VITALS: BP 128/79
[2021-11-12] MEDS: INSULIN REGULAR, HUMAN 100 UNIT/ML 3 ML VIAL SQ PRN ×2 (12:04→17:31)
[2021-11-12] MEDS ORDERED: ANESTHESIA TRAY IN PYXIS 1 EA TRAY MC ONE (12:26)
[2021-11-12] MEDS ORDERED: BUPIVACAINE 0.5 % PF 150 MG/30 ML VIAL ONE (12:35)
--- NOTE | 2021-11-12 12:45 | NUR ---
RN NOTE Patient brought to OR for surgery.
[2021-11-12] MEDS ORDERED: FENTANYL PF 100MCG/2ML AMPUL ONE (12:50)
[2021-11-12] MEDS ORDERED: ROCURONIUM BROMIDE 50 MG/5 ML ONE (12:50)
--- NOTE | 2021-11-12 15:40 | NUR ---
RN NOTE Patient got back from surgery, wheeled back to room. Vital signs as follows: BP 119/83, HR 73, Temp 97.4, SPO2 100 %. Will continue to monitor.
--- NOTE | 2021-11-12 18:52 | NUR ---
MS RN CLOSING NOTE Patient in bed, resting comfortably. A/O x 2-3. On O2 at 2 LPM, breathing evenly and unlabored. No SOB or s/s of distress noted. IV access on LAC #20G, intact and patent. Dressing on Left foot c/d/i. Due meds given. All needs attended to. Safety precautions maintained: bed in low, locked position; siderails up x 2; call light within reach. Will endorse to weight shifter nurse to JOYCE.
--- NOTE | 2021-11-12 19:39 | NUR ---
RN OPENING NOTES; RECEIVED PT IN BED AWAKE, ALERT, ORIENTED X2 AND VERBALLY RESPONSIVE. NO SOB NOTED, PT ON 02 VIA NC @ 2LPM AND TOLERATED WELL. IV ACCESS ON LAC#20G INTACT AND PATENT. NO S/S OF INFILTRATIONS. NO C/O PAIN OR DISCOMFORT. NO ACUTE DISTRESS. ALL SAFETY MEASURES IN PLACE, BED LOCKED IN LOWEST POSITION. SIDE RAILS X3. PLACE CALL LIGHT WITHIN REACH. WILL CONTINUE TO MONITOR.
[2021-11-12 20:00] VITALS: BP 122/75
[2021-11-12] MEDS: *INSULIN REGULAR(HUMULIN R)HUM 100 UNIT/ML VIAL SQ PRN (22:18)
--- NOTE | 2021-11-12 22:19 | NUR ---
RN NOTES: PT'S BLOOD SUGAR 240. 4 UNITS OF REGULAR INSULIN GIVEN. NO S/S OF HYPER/HYPOGLYCEMIA. WILL CONTINUE TO MONITOR
[2021-11-13] MEDS: METOPROLOL TARTRATE 50 MG TABLET PO SCH ×4 (00:21→17:05)
[2021-11-13 04:00] VITALS: BP 127/64
--- NOTE | 2021-11-13 06:38 | NUR ---
RN CLOSING NOTES; PT IN BED SLEEPING BUT EASILY AROUSABLE, AWAKE, ALERT, ORIENTED X2-3 AND VERBALLY RESPONSIVE. NO SOB NOTED, PT ON 02 VIA NC @ 2LPM, O2 SAT 99%. AND TOLERATED WELL. IV ACCESS ON LAC#20G INTACT AND PATENT. NO S/S OF INFILTRATIONS. NO C/O PAIN OR DISCOMFORT. NO ACUTE DISTRESS. ALL DUE MEDS GIVEN ORDERED. PT TOLERATED WELL. NO S/S OF HYPER/HYPOGLYCEMIA. ALL SAFETY MEASURES IN PLACE, BED LOCKED IN LOWEST POSITION. SIDE RAILS X3. PLACE CALL LIGHT WITHIN REACH. WILL CONTINUE TO MONITOR.
[2021-11-13 07:30] LABS: BASOPHILS % (AUTO) 0.2 % (0.0-2.0); EOSINOPHILS % (AUTO) 0.2 % (0.0-6.0); HEMATOCRIT 40 % (39-51); HEMOGLOBIN 13.3 g/dL (13.5-17.5); LYMPHOCYTES # (AUTO) 1.5 K/uL (0.8-4.8); LYMPHOCYTES % (AUTO) 20.3 % (20.0-44.0); MEAN CORPUSCULAR HGB CONC 34 g/dl (31.0-36.0); MEAN CORPUSCULAR VOLUME 100 fL (80-96); MONOCYTES # (AUTO) 0.8 K/uL (0.1-1.30); MONOCYTES % (AUTO) 10.1 % (2.0-12.0); NEUTROPHILS # (AUTO) 5.2 K/uL (1.8-8.9); NEUTROPHILS % (AUTO) 69.2 % (43.0-81.0); PLATELET COUNT (AUTO) 154 K/uL (150-450); RED BLOOD CELL COUNT(AUTO) 3.95 MIL/uL (4.5-6.0); WHITE BLOOD COUNT (AUTO) 7.6 K/uL (4.3-11.0)
--- NOTE | 2021-11-13 07:30 | NUR ---
RN OPENING NOTES RECEIVED PATIENT IN BED, AWAKE, VERBALLY RESPONSIVE, NO SIGNS OF ACUTE DISTRESS NOTED. ON O2 @2LPM VIA NC, SATURATION AT 99 %, NO SOB NOTED. IV ACCESS ON LAC #20G INTACT AND PATENT, SL. DENIES ANY PAIN AT THIS TIME. SAFETY MEASURES IN PLACE. BED LOCKED AND IN LOWEST POSITION, SR UP, CALL LIGHT PLACED WITHIN EASY REACH. WILL CONTINUE TO MONITOR.
[2021-11-13] MEDS: BLOOD SUGAR DIAGNOSTIC 1 EACH STRIP VI SCH ×4 (07:54→21:07)
[2021-11-13] MEDS: *INSULIN REGULAR(HUMULIN R)HUM 100 UNIT/ML VIAL SQ PRN ×4 (07:56→21:09)
[2021-11-13 08:07] LABS: CALCIUM, SERUM 8.1 mg/dL (8.5-10.1); CREATININE 0.8 mg/dL (0.6-1.3); MAGNESIUM 2.1 mg/dL (1.8-2.4); PHOSPHORUS 3.5 mg/dL (2.5-4.9); POTASSIUM 4.5 mmol/L (3.5-5.1)
[2021-11-13] MEDS: METHADONE HCL 10 MG TABLET PO SCH (09:52)
[2021-11-13] MEDS: DEXAMETHASONE SOD PHOSPHATE 10 MG/ML VIAL IV SCH (09:52)
[2021-11-13] MEDS: PROSOURCE / PROSTAT (PYXIS) 30 ML UDC PO SCH (09:54)
[2021-11-13] MEDS: APIXABAN 5 MG TABLET PO SCH ×2 (09:54→20:53)
[2021-11-13] MEDS: CEFTRIAXONE 2 G in IV D5W 100 ML IV SCH (11:14)
[2021-11-13 12:00] VITALS: BP 109/72
--- NOTE | 2021-11-13 15:16 | NUR ---
patient refused discharge photo taken.
--- NOTE | 2021-11-13 19:00 | NUR ---
RN CLOSING NOTES PATIENT IN BED, AWAKE, VERBALLY RESPONSIVE, NO SIGNS OF ACUTE DISTRESS NOTED. REMAINS ON O2 @2LPM VIA NC, SATURATION AT 99%, NO SOB NOTED. IV ACCESS ON LAC #20G INTACT AND PATENT, SL. NO C/O PAIN. ALL DUE MEDS GIVEN, TOLERATED WELL. ISOLATION PRECAUTION OBSERVED. SAFETY MEASURES IN PLACE. BED LOCKED AND IN LOWEST POSITION, SR UP, CALL LIGHT PLACED WITHIN EASY REACH. WILL ENDORSE TO NEXT SHIFT.
[2021-11-13 20:00] VITALS: BP 113/92
[2021-11-14] MEDS: METOPROLOL TARTRATE 50 MG TABLET PO SCH ×3 (00:07→12:48)
[2021-11-14 05:00] VITALS: BP 126/90
--- NOTE | 2021-11-14 07:08 | NUR ---
Patient A&Ox3. VSS. In no signs of distress. Slept well overnight. No overnight events. LAC #20G flushed and patent.
[2021-11-14] MEDS: BLOOD SUGAR DIAGNOSTIC 1 EACH STRIP VI SCH ×2 (08:08→12:48)
[2021-11-14] MEDS: DEXAMETHASONE SOD PHOSPHATE 10 MG/ML VIAL IV SCH (08:09)
[2021-11-14] MEDS: APIXABAN 5 MG TABLET PO SCH (08:10)
[2021-11-14] MEDS: METHADONE HCL 10 MG TABLET PO SCH (08:10)
[2021-11-14] MEDS: PROSOURCE / PROSTAT (PYXIS) 30 ML UDC PO SCH (10:54)
[2021-11-14 12:00] VITALS: BP 134/77
[2021-11-14 12:48] VITALS: BP 134/77
[2021-11-14] MEDS: CEFTRIAXONE 2 G in IV D5W 100 ML IV SCH (12:50)
[2021-11-14] MEDS: *INSULIN REGULAR(HUMULIN R)HUM 100 UNIT/ML VIAL SQ PRN (12:52)
--- NOTE | 2021-11-14 15:24 | NUR ---
RN NOTE PT LEFT HOSPITAL AT 1525, VIA AMBULANCE. IN GOOD CONDITION, NOT IN DISTRESS. V/S STABLE. GAVE METHADONE PRESCRIPTION, D/C INSTRUCTIONS TO AMBULANCE PERSONNEL. CN SPOKE AND ENDORSED TO RN KRYSTA
== END 2021-11-14 15:24 | DRG 853 ==
LOC: ER 10:11 → TRANSITION 14:39 → TELE-TD 20:13 → TELE1 11-06 09:52 → MEDSG1 11-11 09:25
PROVIDERS: ADMIT Internal Medicine; ATTEND Nurse Practitioner Family
PROC: 05HB33Z Insertion of Infusion Device into Right Basilic Vein, Percutaneous Approach (ICD-10-PCS; 2021-11-05)
PROC: 0Y6Q0Z1 Detachment at Left 1st Toe, High, Open Approach (ICD-10-PCS; principal; 2021-11-12)
DX: A40.8 Other streptococcal sepsis (principal); U07.1 COVID-19; J96.01 Acute respiratory failure with hypoxia; E87.1 Hypo-osmolality and hyponatremia; E44.0 Moderate protein-calorie malnutrition; M86.8X7 Other osteomyelitis, ankle and foot; G93.49 Other encephalopathy; F11.20 Opioid dependence, uncomplicated; I48.91 Unspecified atrial fibrillation; M20.41 Other hammer toe(s) (acquired), right foot; M20.42 Other hammer toe(s) (acquired), left foot; E11.69 Type 2 diabetes mellitus with other specified complication; D69.6 Thrombocytopenia, unspecified; E11.42 Type 2 diabetes mellitus with diabetic polyneuropathy; E11.621 Type 2 diabetes mellitus with foot ulcer; E11.65 Type 2 diabetes mellitus with hyperglycemia; E86.1 Hypovolemia; E87.6 Hypokalemia; E88.09 Other disorders of plasma-protein metabolism, not elsewhere classified; G89.4 Chronic pain syndrome; I10 Essential (primary) hypertension; I70.0 Atherosclerosis of aorta; J44.9 Chronic obstructive pulmonary disease, unspecified; K74.60 Unspecified cirrhosis of liver; K76.0 Fatty (change of) liver, not elsewhere classified; L97.529 Non-pressure chronic ulcer of other part of left foot with unspecified severity; R31.9 Hematuria, unspecified
CPT/HCPCS: 36415; 70450-TC; 71045-TC; 73660-TC; 73718-TC; 76700-TC; 80048-TC; 80053-TC; 80076-TC; 80202-TC; 81001; 82140-TC; 82570-TC; 82962-TC; 83605-TC; 83735-TC; 83880; 84100-TC; 84300-TC; 84443-TC; 84484-TC; 85025-TC; 85652-TC; 85730-TC; 86140-TC; 86803; 87040-TC; 87070-TC; 87075-TC; 87081-TC; 87086-TC; 87186-TC; 87806; 92526; 92611-TC; 97116-TC; 97530-TC; A4216; A6403; A9563; C9803; G0378; G0480; J0282; J0330; J0690; J0692; J0696; J1100; J1815; J2405; J2543; J2704; J3010; J3480; J3490; J7030; J7050; J7060; P9047